=== PATIENT | female | born 1995 | race Caucasian/White ===

== ENCOUNTER 2019-01-31 09:00 | Emergency (ER) | payer BC ==
[~2019-01-31] VITALS: Ht 162.6 cm; Wt 77.1 kg
[2019-01-31 09:18] VITALS: BP 134/83
[2019-01-31 10:12] LABS: BILIRUBIN,URINE NEG (NEG); CLARITY,URINE CLEAR; COLOR,URINE YELLOW; GLUCOSE,URINE NEG (NEG); NITRITE,URINE NEG (NEG); RBC,URINE 20-40 /HPF (0-2); UROBILINOGEN,URINE 1 mg/dL (0.2 mg/dL)
[2019-01-31 10:13] LABS: BACTERIA,URINE 0 /HPF (0-FEW); SQUAMOUS EPITHELIAL CELL,UR MOD /LPF; WBC,URINE RARE /HPF (0-4)
[2019-01-31 10:43] LABS: BASO % 0 % (0-3); EOS % 1 % (0-3); HEMOGLOBIN 13.6 g/dL (12.0-15.5); LYMPH # 1.4 x10^3/uL (1.0-4.8); LYMPH % 18 % (24-48); MEAN CORPUSCULAR HEMOGLOBIN 32 pg (25-35); MEAN CORPUSCULAR HGB CONC 34 g/dL (31-37); MEAN CORPUSCULAR VOLUME 93 fL (79-100); MONO # 0.4 x10^3/uL (0.0-1.1); MONO % 5 % (0-9); NEUT # 5.7 x10^3uL (1.8-7.7); NEUT % 76 % (31-73); PLATELET COUNT 239 x10^3/uL (140-400); RED BLOOD COUNT 4.32 x10^6/uL (3.50-5.40); WHITE BLOOD COUNT 7.5 x10^3/uL (4.0-11.0)
[2019-01-31 10:53] LABS: CREATININE 0.7 mg/dL (0.6-1.0); GFR 105.6; POTASSIUM 3.9 mmol/L (3.5-5.1); TOTAL BILIRUBIN 0.3 mg/dL (0.2-1.0); TOTAL PROTEIN 7.9 g/dL (6.4-8.2)
--- NOTE | 2019-01-31 11:32 | RAD ---
CT scan of the abdomen and pelvis without contrast 01/31/2019 CLINICAL HISTORY: Left flank pain. TECHNIQUE: Unenhanced, contiguous, 3 mm axial sections were obtained through abdomen and pelvis. One or more of the following individualized dose reduction techniques were utilized for this study: 1. Automated exposure control. 2. Adjustment of the mA and/or kV according to patient size. 3. Use of iterative reconstruction technique. FINDINGS: Images through the lung bases demonstrate minimal dependent subsegmental atelectasis bilaterally. The liver, spleen, pancreas, and adrenal glands are within normal limits. A 1 to 2 mm nonobstructing calculus is seen involving the mid/lower pole of the right kidney. Mild dilatation of the left intrarenal collecting system is seen. The left ureter is mildly dilated throughout its course. Within the distal left ureter projecting medially into the urinary bladder at the level of left UVJ a 4 mm calculus is seen. This is causing mild obstruction of the left collecting system. The abdominal aorta tapers normally. The gallbladder is contracted. No free fluid or free air is within abdomen. There is no evidence of bowel obstruction. The appendix is well-visualized and is within normal limits. Images through the pelvis demonstrate the urinary bladder distended with urine. A moderate amount of stool is seen throughout the rectum and sigmoid colon. Calcifications are seen within the pelvis consistent with phleboliths. No free fluid is seen. Minimal S-shaped curvature of the thoracolumbar spine is noted. IMPRESSION: 4 mm ureteral calculus is seen projecting medially into the urinary bladder at the level of the left UVJ. It is causing mild obstruction of the left collecting system. Electronically signed by: Hermann Chase MD (01/31/2019 11:29 AM) [id number]
[2019-01-31] MEDS ORDERED: TAMS0.4C97 PO (11:48)
--- NOTE | 2019-01-31 12:14 | PHYS DOC ---
Past History Past Medical History: No Pertinent History Past Surgical History: No Surgical History Alcohol Use: Occasionally Drug Use: None Adult General Chief Complaint Chief Complaint: BACK PAIN OR INJURY HPI HPI Patient is a 23-year-old female presenting with back pain she has had some UTI symptoms of dysuria or urinary frequency for the last 3 weeks those were getting better and then today had sudden onset 30 minutes ago sharp left l lower back radiates feels dull also no vomiting no fever no abdominal pain pain is actually better and she did not want any pain medication in the emergency room Review of Systems Review of Systems Constitutional: Denies fever or chills [] Eyes: Denies change in visual acuity, redness, or eye pain [] HENT: Denies nasal congestion or sore throat [] Respiratory: Denies cough or shortness of breath [] Integument: Denies rash or skin lesions [] Neurologic: Denies headache, focal weakness or sensory changes [] Endocrine: Denies polyuria or polydipsia [] All other systems were reviewed and found to be within normal limits, except as documented in this note. Physical Exam Physical Exam Constitutional: Well developed, well nourished, no acute distress, non-toxic appearance. [] HENT: Normocephalic, atraumatic, bilateral external ears normal, oropharynx moist, no oral exudates, nose normal. [] Eyes: PERRLA, EOMI, conjunctiva normal, no discharge. [] Neck: Normal range of motion, no tenderness, supple, no stridor. [] Cardiovascular:Heart rate regular rhythm, no murmur [] Lungs & Thorax: Bilateral breath sounds clear to auscultation [] Abdomen: Bowel sounds normal, soft, no tenderness, no masses, no pulsatile masses. [] Skin: Warm, dry, no erythema, no rash. [] Back: CVA tenderness noted on the left Extremities: No tenderness, no cyanosis, no clubbing, ROM intact, no edema. [] Neurologic: Alert and oriented X 3, normal motor function, normal sensory function, no focal deficits noted. [] Psychologic: Affect normal, judgement normal, mood normal. [] Current Patient Data Vital Signs Vital Signs Date Time Temp Pulse Resp B/P (MAP) Pulse Ox O2 Delivery O2 Flow Rate FiO2 01/31/19 09:18 97.9 55 16 99 Room Air Lab Results Laboratory Tests Test 01/31/19 09:45 01/31/19 09:51 01/31/19 10:25 Urine Collection Type Unknown Urine Color Yellow Urine Clarity Clear Urine pH 6.5 Urine Specific [place] 1.020 Urine Protein Neg (NEG-TRACE) Urine Glucose (UA) Neg mg/dL (NEG) Urine Ketones (Stick) Neg mg/dL (NEG) Urine Blood Large (NEG) Urine Nitrite Neg (NEG) Urine Bilirubin Neg (NEG) Urine Urobilinogen Dipstick 1 mg/dL (0.2 mg/dL) Urine Leukocyte Esterase Neg (NEG) Urine RBC 20-40 /HPF (0-2) Urine WBC Rare /HPF (0-4) Urine Squamous Epithelial Cells Mod /LPF Urine Bacteria 0 /HPF (0-FEW) Urine Mucus Slight /LPF POC Urine HCG, Qualitative hcg negative (Negative) White Blood Count 7.5 x10^3/uL (4.0-11.0) Red Blood Count 4.32 x10^6/uL (3.50-5.40) Hemoglobin 13.6 g/dL (12.0-15.5) Hematocrit 40.0 % (36.0-47.0) Mean Corpuscular Volume 93 fL (79-100) Mean Corpuscular Hemoglobin 32 pg (25-35) Mean Corpuscular Hemoglobin Concent 34 g/dL (31-37) Red Cell Distribution Width 13.0 % (11.5-14.5) Platelet Count 239 x10^3/uL (140-400) Neutrophils (%) (Auto) 76 % (31-73) H Lymphocytes (%) (Auto) 18 % (24-48) L Monocytes (%) (Auto) 5 % (0-9) Eosinophils (%) (Auto) 1 % (0-3) Basophils (%) (Auto) 0 % (0-3) Neutrophils # (Auto) 5.7 x10^3uL (1.8-7.7) Lymphocytes # (Auto) 1.4 x10^3/uL (1.0-4.8) Monocytes # (Auto) 0.4 x10^3/uL (0.0-1.1) Eosinophils # (Auto) 0.0 x10^3/uL (0.0-0.7) Basophils # (Auto) 0.0 x10^3/uL (0.0-0.2) Sodium Level 140 mmol/L (136-145) Potassium Level 3.9 mmol/L (3.5-5.1) Chloride Level 103 mmol/L (98-107) Carbon Dioxide Level 28 mmol/L (21-32) Anion Gap 9 (6-14) Blood Urea Nitrogen 17 mg/dL (7-20) Creatinine 0.7 mg/dL (0.6-1.0) Estimated GFR (Cockcroft-Gault) 105.6 BUN/Creatinine Ratio 24 (6-20) H Glucose Level 100 mg/dL (70-99) H Calcium Level 9.0 mg/dL (8.5-10.1) Total Bilirubin 0.3 mg/dL (0.2-1.0) Aspartate Amino Transferase (AST) 20 U/L (15-37) Alanine Aminotransferase (ALT) 41 U/L (14-59) Alkaline Phosphatase 78 U/L (46-116) Total Protein 7.9 g/dL (6.4-8.2) Albumin 4.0 g/dL (3.4-5.0) Albumin/Globulin Ratio 1.0 (1.0-1.7) EKG EKG [] Radiology/Procedures Radiology/Procedures [] Impressions: A 1 to 2 mm nonobstructing calculus is seen involving the mid/lower pole of the right kidney. Mild dilatation of the left intrarenal collecting system is seen. The left ureter is mildly dilated throughout its course. Within the distal left ureter projecting medially into the urinary bladder at the level of left UVJ a 4 mm calculus is seen. This is causing mild obstruction of the left collecting system. The abdominal aorta tapers normally. The gallbladder is contracted. No free fluid or free air is within abdomen. There is no evidence of bowel obstruction. The appendix is well-visualized and is within normal limits. Images through the pelvis demonstrate the urinary bladder distended with urine. A moderate amount of stool is seen throughout the rectum and sigmoid colon. Calcifications are seen within the pelvis consistent with phleboliths. No free fluid is seen. Minimal S-shaped curvature of the thoracolumbar spine is noted. IMPRESSION: 4 mm ureteral calculus is seen projecting medially into the urinary bladder at the level of the left UVJ. It is causing mild obstruction of the left collecting system. Electronically signed by: Hermann Bloom MD (01/31/2019 11:29 AM) [id number] DICTATED AND SIGNED BY: HERMANN BLOOM MD DATE: 01/31/19 1129 CC: TYLER CROWLEY MD; PCP,UNKNOWN ~ Course & Med Decision Making Course & Med Decision Making Pertinent Labs and Imaging studies reviewed. (See chart for details) []Patient is well-appearing looks good no fever labs look good 4 mm stone reassurance provided discuss urology follow-up within a week if symptoms persist otherwise return here for fever take Flomax she declined pain medication prescription Dragon Disclaimer Dragon Disclaimer This electronic medical record was generated, in whole or in part, using a voice recognition dictation system. Departure Departure: Impression: Primary Impression: Kidney stone Disposition: 01 HOME, SELF-CARE Condition: STABLE Patient Instructions: Kidney Stones, [id number] Scripts Tamsulosin Hcl (FLOMAX) 0.4 Mg Cap.er.24h 1 CAP PO DAILY for kidney stone., #30 CAP 0 Refills Prov: TYLER CROWLEY MD 01/31/19 TYLER CROWLEY MD Jan 31, 2019 12:14
== END 2019-01-31 11:53 | disposition home or self-care (01) ==
LOC: ER 09:00
DX: N20.0 Calculus of kidney (principal)
CPT/HCPCS: 36415; 74176; 80053; 81001; 81025; 85025; 99285